=== PATIENT | female | born 1980 | race African-American/Black ===

== ENCOUNTER 2025-02-20 13:25 | Emergency (ER) | payer OTHER ==
[~2025-02-20] VITALS: Ht 160 cm; Wt 79.0 kg
[2025-02-20 13:49] VITALS: O2SAT 99
[2025-02-20] MEDS: LIDOCAINE 5% PATCH TOP SCH (14:50)
[2025-02-20] MEDS: KETOROLAC 15MG/ML VIAL IM ONE (14:50)
[2025-02-20] MEDS ORDERED: IBUP-2028 MT (15:49)
[2025-02-20] MEDS ORDERED: LIDO700A30 TP (15:49)
[2025-02-20 16:00] VITALS: BP 133/74; PULSE 76; RESP 14; TEMP 36.6; O2SAT 100
== END 2025-02-20 16:05 | disposition home or self-care (01) ==
LOC: ER 13:25
DX: S16.1XXA Strain of muscle, fascia and tendon at neck level, initial encounter (principal); I10 Essential (primary) hypertension; X58.XXXA Exposure to other specified factors, initial encounter; Y93.89 Activity, other specified; Y92.410 Unspecified street and highway as the place of occurrence of the external cause; Y99.8 Other external cause status
CPT/HCPCS: 81025; 70450; 96372; 99285; J1885; Z7610